=== PATIENT | female | born 1940 | race Caucasian/White ===

== ENCOUNTER → 2018-03-10 | Outpatient (CLI) | payer MEDICARE, OTHER ==
[2018-03-10 10:42] LABS: HCT 42.6 % (34.0-46.0); HGB 14.4 gm/dL (11.4-16.0); MCH 32.8 pg (25.0-35.0); MCHC 33.8 g/dL (31.0-37.0); Mean Platelet Volume 7.8; Platelet Count 289 k/uL (150-450); RBC 4.39 m/uL (3.80-5.40); RDW 13.3 % (11.5-15.5)
[2018-03-10 10:47] LABS: Appearance,Urine Clear (Clear); Bilirubin,Urine Negative (Negative); Blood,Urine Negative (Negative); Color,Urine Yellow; Glucose,Urine (UA) Negative (Negative); Ketones,Urine Negative (Negative); Leukocyte Esterase,Urine Negative (Negative); Nitrite,Urine Negative (Negative); PH, Urine 7.5 (5.0-8.0); Protein,Urine Negative (Negative); Specific Gravity,Urine 1.016 (1.001-1.035); Urobilinogen,Urine <2.0 mg/dL (<2.0)
[2018-03-10 10:48] LABS: INR 0.9 (<1.2); Partial Thromboplastin Time 23.9 sec (22.0-30.0); Prothrombin Time 10.2 sec (9.0-12.0)
[2018-03-10 11:00] LABS: Albumin 4.3 g/dL (3.5-5.0); Calcium 9.9 mg/dL (8.4-10.2); Potassium 4.3 mmol/L (3.5-5.1); Total Bilirubin 0.6 mg/dL (0.2-1.3); Total Protein 7.5 g/dL (6.3-8.2)
== END | disposition home or self-care (01) ==
LOC: LABPAT 09:15
PROVIDERS: ATTEND Orthopaedic Surgery
DX: Z01.812 Encounter for preprocedural laboratory examination (principal); Z79.01 Long term (current) use of anticoagulants
CPT/HCPCS: 36415; 80053; 81003; 85027; 85610; 85730; 87070

== ENCOUNTER 2018-04-05 05:41 | Inpatient (IN) | payer MEDICARE, OTHER ==
[~2018-04-05 05:41] MED LIST: ACETAMINOPHEN TAB 500 MG TAB PO ONE; DEXAMETHASONE SOD PHOSPHATE 10 MG/ML 1 ML VIAL IV ONE; HYDROmorphone 0.5 MG/0.5 ML SYRINGE IVP PRN; MELOXICAM 7.5 MG TAB PO ONE; MORPHINE SULFATE 2 MG/ML SYRINGE IV PRN; ONDANSETRON 4 MG/2 ML VIAL IVP ONE; ONDANSETRON 4 MG/2 ML VIAL IVP PRN; TRANEXAMIC ACID 1,000 MG in SODIUM CHLORIDE 0.9% 50 ML IVPB ONE; ceFAZolin IN SWFI 2 GM/20 ML SYRINGE IVP ONE
[2018-04-05] MEDS: LACTATED RINGERS 1,000 ML IV SCH (06:20)
[2018-04-05] MEDS ORDERED: LIDOCAINE 1% 20 ML VIAL (10MG/ML) FOR IV START INTRADERMA ONE (06:20)
[2018-04-05] MEDS ORDERED: MIDAZOLAM 2 MG/2 ML VIAL IV ONE (06:28)
[2018-04-05] MEDS ORDERED: fentaNYL (PF) 50 MCG/ML 2 ML AMP IV ONE (06:29)
--- NOTE | 2018-04-05 06:44 | P.ONQ ---
Anesthesiology Proc Note - PNB - Peripheral Nerve Block Performed Right Adductor Canal Infusion Time Out Performed: Yes Procedure Start Time: 06:28 Procedure Stop Time: 06:37 Indication: Acute Post-Operative Pain, Requested by physician (Dr Whitaker) Sedation Type: Sedate with meaningful contact maintained Preparation: Sterile Dressing Position: Supine Catheter: Indwelling Needle Types: Fely Needle Size: 100mm (4") Needle Gauge: 18 Technique: Ultrasound Injectate: 0.5% Ropivacaine (see comment for volume) (30 ml) Blood Aspirated: No Pain Paresthesia on Injection Noted: No Resistance on Injection: Normal Events: Uneventful and Well Tolerated
[2018-04-05] MEDS ORDERED: PHENYLEPHRINE-0.9% NACL SYG 1 MG/10 ML SYRINGE ONE (06:53)
[2018-04-05] MEDS ORDERED: TRANEXAMIC ACID 1,000 MG/10 ML VIAL ONE (06:53)
[2018-04-05] MEDS ORDERED: SODIUM CHLORIDE 0.9% 100 ML BAG ONE (06:53)
[2018-04-05] MEDS ORDERED: MIDAZOLAM 2 MG/2 ML VIAL ONE (06:53)
[2018-04-05] MEDS ORDERED: fentaNYL (PF) 50 MCG/ML 2 ML AMP ONE (06:53)
[2018-04-05] MEDS ORDERED: PROPOFOL 10 MG/ML 20 ML VIAL IV ONE (06:53)
[2018-04-05] MEDS ORDERED: NALOXONE 0.4 MG/ML 1 ML VIAL IV PRN (06:54)
[2018-04-05] MEDS ORDERED: hydrOXYzine PAMOATE 25 MG CAP PO PRN (06:54)
[2018-04-05] MEDS ORDERED: BISACODYL 10 MG SUPP RECTAL PRN (06:54)
[2018-04-05] MEDS ORDERED: MAGNESIUM HYDROXIDE 2,400 MG/10 ML CUP PO PRN (06:54)
[2018-04-05] MEDS ORDERED: HYDROcodone/APAP 5-325MG 1 EACH TAB PO PRN (06:54)
[2018-04-05] MEDS ORDERED: NA PHOS,M-B/NA PHOS,DI-BA 133 ML ENEMA RECTAL PRN (06:54)
[2018-04-05] MEDS ORDERED: HYDROmorphone 0.5 MG/0.5 ML SYRINGE IVP PRN ×3 (06:54)
[2018-04-05] MEDS ORDERED: DIAZEPAM 5 MG TAB PO PRN (06:54)
[2018-04-05] MEDS ORDERED: ROPIVACAINE 1,100 MG, SODIUM CHLORIDE 0.9% 500 ML 330 ML MISCELLANE PRN ×2 (07:00)
[2018-04-05] MEDS ORDERED: ROPIVACAINE 246.25 MG, EPINEPHrine 0.5 MG, KETOROLAC 30 MG, cloNIDine HCL/PF 80 MCG, WA... MISCELLANE ONE ×5 (07:00)
[2018-04-05] MEDS ORDERED: ceFAZolin 3,000 MG in SODIUM CHLORIDE 0.9% IRRIGATIO 3,000 ML IRRIGATION ONE (07:30)
[2018-04-05] MEDS ORDERED: LACTATED RINGERS 1,000 ML IV ONE ×2 (08:09)
--- NOTE | 2018-04-05 08:36 | P.OP ---
Date of Procedure: 04/05/18 Preoperative Diagnosis: Severe osteoarthritis right knee Postoperative Diagnosis: Severe osteoarthritis right knee Procedure(s) Performed: Right total knee arthroplasty Implants: Locke [employer] Nephew Journey II CR Oxinium cruciate retaining femoral component size 4, right [employer] Journey right nonporous tibial baseplate size 4 Locke [employer] Journey II, XLPE Deep Dished articular insert, size 9 mm, Size 3- 4 right [employer] Journey BCS resurfacing oval patellar component, 29 mm All components were cemented using Palacos R bone cement.. The articulation is Oxinium on polyethylene. Anesthesia: spinal Surgeon: Issa Whitaker Paint Technician #1: Jami Torres Estimated Blood Loss (ml): 25 Pathology: other (Bone and cartilage) Condition: stable Disposition: PACU Indications for Procedure: After failure of conservative treatment we discussed the surgical and nonsurgical treatment options at length. Patient wishes to proceed with a total knee arthroplasty. Complications specific to this procedure were discussed at length, including but not limited to infection, bleeding, stiffness , and nerve injury. Patient is aware of all these complications and informed consent was obtained Operative Findings: The operative findings are consistent with severe osteoarthritis of the right knee Description of Procedure: Patient was seen in the preoperative area consent was reviewed and operative site was marked with a skin marker. An adductor canal pain catheter was placed by anesthesia in the preoperative area. Patient was then brought to the operating room and given preoperative antibiotics intravenously. A spinal anesthetic was administered by the anesthesia department. A tourniquet was placed on the upper thigh and the lower extremity was prepped and draped in usual sterile fashion. A gram of transexamic acid was given. A universal timeout was then performed which confirmed the patient's name, surgical site, ALLERGIES, and consent. The lower extremity was then exsanguinated and tourniquet was inflated to 250 mmHg. A standard and anterior midline approach to the knee was performed. The skin and subcutaneous tissue was dissected down to the patellar tendon. A medial parapatellar arthrotomy was then performed. The knee was then extended, the patellar was everted, and the knee was again flexed. Anterior horns of both menisci were excised, and a release was performed to the posterior medial aspect of the knee. On gross visual inspection, there was complete loss of articular cartilage in the medial and patellofemoral joint spaces. There was also significant cartilage damage in the lateral compartment. There were multiple periarticular osteophytes which were then removed with a Ronguer. The femoral canal was then opened with the appropriate drill, and the intramedullary femoral cutting guide was then placed and set for 5 of valgus. The distal femoral cutting block was then pinned in place, and the distal femur was then cut. The cutting block was then removed and the cut was checked for flatness. Next, the sizing guide was then placed and set for 3 external rotation based off of the epicondylar axis and Whitesides line. After the femur was sized, the appropriate 4-in-1 cutting block was then pinned in place. The anterior condyles were cut without notching. The posterior and chamfer cuts were performed while protecting the collateral ligaments. The cutting block was then removed, and the femoral canal was plugged with autologous bone. Attention was then directed to the tibia. The remaining ACL was removed with a Ronguer, and the tibia was then gently subluxed forward with a large bent knee retractor. Any remaining menisci was excised. The posterior lateral corner was cauterized in order to cauterize the lateral geniculate artery. The extra medullary tibial cutting guide was then placed, set for the appropriate rotation , slope, and depth of resection. The proximal tibia cutting guide was then pinned in place. Proximal tibia was then cut and sized. Next trials were then placed with the appropriate-sized insert. The knee was able to fully extend and flex to 130 and was stable throughout all range of motion. The knee was then extended, patella everted. Patella was then measured, and then using an osteotomy guide, the patella was cut at the appropriate level. The patella was then measured and drilled and the patella trial was then placed. The knee was then taken through range of motion with the patella trial and the patella tracked normally. The knee was then extended patella trial was then removed and the patella was everted. Knee was then flexed and lug holes were drilled through the femoral trial and the femoral trial was then removed. The tibial was then exposed, and the tibial broach guide was then pinned in place after it was set for the appropriate rotation to allow for the most coverage without overhang. The tibia was then reamed and broached. The cut surfaces of bone were then irrigated with pulsatile lavage. The posterior structures were injected with the ropivacaine solution. The knee was also irrigated with Irrisept solution. The components were then opened, the cement was mixed, and the components were then cemented in place. The cement was allowed to harden with the knee in full extension. While the cement was hardening, the remaining soft tissues were then injected with a ropivacaine solution, which consisted of 246.25 mg of ropivacaine, 0.5 mg of epinephrine, 30 mg of Toradol, 80 g of clonidine, and 48.45 mL of sterile water, for a total of 100 mL of fluid injected. After the cemented hardened. The tourniquet was released, and hemostasis was obtained. A second gram of transexamic acid was given. The knee was again irrigated. The knee was again taken through range of motion and found to be stable throughout all range of motion of 0-130 , and the patella tracked normally. The fascia was then closed with #2 strata fix suture. The subcutaneous tissue was closed with 3-0 Vicryl and 3-0 strata fix. Dermabond glue was used for the skin and placed with the knee in flexion. The patient was placed in a sterile silver dressing. Patient was then transferred to recovery room in stable condition. The child and youth program assistant ERNESTO Del Valle was required due the complexity surgery and the need for a skilled ophthalmic surgical assistant. She assisted in positioning, draping, retraction, and closure of the wound.
[2018-04-05 09:13] VITALS: RESP 16
--- NOTE | 2018-04-05 10:09 | XR ---
EXAMINATION TYPE: XR knee limited RT DATE OF EXAM: 04/05/2018 COMPARISON: 05/07/2011 HISTORY: Post knee replacement TECHNIQUE: 2 views with mobile apparatus right knee FINDINGS: Postsurgical changes are evident. No acute fractures are evident. Tibial and femoral compon ents have been placed. IMPRESSION: 1. No acute fracture post knee replacement.
[2018-04-05 14:58] VITALS: BMI 36.1
[2018-04-05] MEDS: HYDROcodone/APAP 5-325MG 1 EACH TAB PO PRN ×2 (15:11→22:15)
[2018-04-05] MEDS: SODIUM CHLORIDE 0.9% 1,000 ML IV SCH ×2 (15:56→22:00)
[2018-04-05] MEDS: ASPIRIN 325 MG TAB PO SCH ×2 (15:56→22:14)
[2018-04-05] MEDS: ceFAZolin IN SWFI 2 GM/20 ML SYRINGE IVP SCH ×2 (16:59→22:46)
[2018-04-05] MEDS ORDERED: LATANOPROST 0.005% OPHTH DROPS 2.5 ML BTL BOTH EYES SCH (20:15)
[2018-04-05] MEDS ORDERED: SENNOSIDES-DOCUSATE SODIUM 1 EACH TAB PO SCH (21:00)
[2018-04-05] MEDS ORDERED: traZODone HCL 50 MG TAB PO SCH (21:00)
[2018-04-05] MEDS: cycloSPORINE 0.05% OPHTH 0.4 ML DROPERETTE BOTH EYES SCH (22:15)
--- NOTE | 2018-04-06 03:13 | CONS ---
CONSULTATION DATE OF SERVICE: 04/05/2018. REASON FOR CONSULTATION: Medical management, requested by Dr. Whitaker. CONSULTATION: This is a very pleasant 77-year-old patient Dr. Ledy Rod. The patient has undergone a right total knee arthroplasty. Postprocedure pain is controlled. No nausea or vomiting. No cardiac symptoms. Chronic stable medical conditions include hyperlipidemia, hypertension, hypothyroid, urinary stress incontinence, and insomnia. Patient otherwise doing well. REVIEW OF SYSTEMS: CONSTITUTIONAL: None. HEENT: None. RESPIRATORY: None. GASTROINTESTINAL: Heartburn. GENITOURINARY: Urinary incontinence. MUSCULOSKELETAL: Arthritic pain in joints. DERMATOLOGICAL, HEMATOLOGIC, LYMPHATIC: None. PSYCHIATRY: None. NEUROLOGIC: None. PAST MEDICAL HISTORY: GERD, hypertension, osteoarthritis, hypothyroid, urinary stress incontinence, insomnia. PAST SURGICAL HISTORY: Left ankle fracture with pins, cataracts, stents. SOCIAL HISTORY: No smoking. Drinks 5 glass of wine a week. . FAMILY HISTORY: Bladder cancer. HOME MEDICATIONS: 1. Trazodone 50 mg at bedtime. 2. Cyclosporine 1 drop to both eyes every 12 hours. 3. Travatan 0.004% 1 drop to both eyes at supper. 4. Zocor 20 mg a day. 5. Multivitamin 1 tablet p.o. daily. 6. Levothyroxine 25 mcg a day. 7. Ibuprofen 600 mg p.o. t.i.d. p.r.n. 8. Hydrochlorothiazide 25 mg a day. 9. Calcium vitamin D 1 tablet p.o. daily. ALLERGIES: Allergies to SULFA and PENICILLIN. PHYSICAL EXAMINATION: Temperature 97.7, pulse 64, respirations 16, blood pressure 120/68, pulse ox 97% on room air. GENERAL APPEARANCE: Well built. BMI 36.5. Lying in bed comfortable. EYES: Pupils equal. Conjunctivae normal. HEENT: External nose and ears normal. Oral cavity normal. NECK: JVD not raised. Mass not palpable. Respiratory effort normal. LUNGS: Fair air entry. CARDIOVASCULAR: 1st and 2nd heart sounds. No edema. ABDOMEN: Soft, nontender. Liver and spleen not palpable. LYMPHATIC: No lymph nodes palpable in neck or axillae. PSYCHIATRY: Alert and oriented x3. Mood and affect normal. NEUROLOGIC: Pupils equal. Cranial nerves grossly intact. Power and sensation grossly intact. EXTREMITIES: Dressing of the right hip. MUSCULOSKELETAL: Evidence of osteoarthritis especially in the hands. INVESTIGATIONS: Lab work from a month ago, white count 5, hemoglobin 14.4 potassium 4.3, creatinine 0.81. ASSESSMENT: 1. Right total knee arthroplasty. 2. Gastroesophageal reflux disease. 3. Essential hypertension. 4. Primary osteoarthritis. 5. Hypothyroidism. 6. Chronic urinary stress incontinence. 7. Chronic insomnia for which the patient takes trazodone. PLAN: Home medications will be resumed. Pain control is in place. The patient is on aspirin for DVT prophylaxis per Dr. Whitaker. Care was discussed with the patient, questions answered. MMODL / IJN: [id number] /
[2018-04-06] MEDS: LACTATED RINGERS 1,000 ML IV SCH (04:38)
[2018-04-06] MEDS: HYDROcodone/APAP 5-325MG 1 EACH TAB PO PRN ×2 (05:56→11:59)
[2018-04-06] MEDS ORDERED: LEVOTHYROXINE 25 MCG TAB PO SCH (06:30)
[2018-04-06 08:03] VITALS: BP 128/49; PULSE 70; TEMP 97.6
[2018-04-06 08:37] LABS: Basophils % (A) 0 %; Eosinophils # (A) 0.1 k/uL (0-0.7); Eosinophils % (A) 1 %; HCT 36.9 % (34.0-46.0); Lymphocytes # (A) 1.3 k/uL (1.0-4.8); Lymphocytes % (A) 14 %; MCH 32.8 pg (25.0-35.0); MCHC 32.6 g/dL (31.0-37.0); MCV 100.7 fL (80.0-100.0); Macrocytosis Slight; Mean Platelet Volume 8.7; Monocytes # (A) 0.5 k/uL (0-1.0); Monocytes % (A) 6 %; Neutrophils % (A) 78 %; Platelet Count 202 k/uL (150-450); RBC 3.66 m/uL (3.80-5.40); RDW 13.9 % (11.5-15.5)
[2018-04-06] MEDS: ASPIRIN 325 MG TAB PO SCH (08:52)
[2018-04-06] MEDS: cycloSPORINE 0.05% OPHTH 0.4 ML DROPERETTE BOTH EYES SCH (08:54)
[2018-04-06] MEDS: SODIUM CHLORIDE 0.9% 1,000 ML IV SCH (08:54)
--- NOTE | 2018-04-06 08:55 | P.DS ---
Providers Date of admission: 04/05/18 05:41 Expected date of discharge: 04/06/18 Attending physician: Issa Whitaker Consults: 04/05/18 06:54 Consult Physician Routine Consulting Provider: Ameya Aguiar Consult Reason/Comments: medical management Do you want consulting provider notified?: Yes Primary care physician: Ledy Jacquesel - Discharge Diagnosis(es) (1) Status post right knee replacement Current Visit: Yes Status: Acute (2) Primary osteoarthritis of right knee Current Visit: Yes Status: Acute Hospital Course: This is a 77-year-old female with known history of degenerative arthritis of the right knee. The patient presents for evaluation. After discussion and consideration patient elects to proceed with total knee arthroplasty. The patient is seen preoperatively by Dr. Whitaker and medically cleared for surgery by their primary care physician. Patient is admitted to [facility] on 04/05/2018 for total knee arthroplasty. The procedures performed without complication or sequelae. The patient is doing well postoperatively. Labs and vital signs are stable on day of discharge. On day of discharge patient's knee incision is healing well. There is minimal erythema. There is no drainage noted at this time. There is minimal soft tissue swelling to the knee. Patient has full foot and ankle motion without difficulty or pain. Neurovascular status to the right lower extremity is intact. Patient is discharged home in good condition. Please see med rec for accurate list of home medications. Plan - Discharge Summary Discharge Rx Participant: Yes New Discharge Prescriptions: New Aspirin 325 mg PO BID #60 tab HYDROcodone/APAP 5-325MG [Molino 5-325] 1 - 2 tab PO Q4-6H PRN #84 tab PRN Reason: Pain Sennosides [Senokot] 1 tab PO BID #60 tablet No Action Hydrochlorothiazide 25 mg PO DAILY Levothyroxine Sodium 25 mcg PO DAILY Simvastatin [Zocor] 20 mg PO DAILY traZODone HCL 50 mg PO HS cycloSPORINE 0.05% OPHTH SOLN [Restasis] 1 drop BOTH EYES Q12H Travoprost [Travatan Z 0.004%] 1 drop BOTH EYES W/SUPPER Multivitamins, Thera [Multivitamin (formulary)] 1 tab PO DAILY Ibuprofen 600 mg PO TID PRN PRN Reason: Pain Calcium With Vit D 1 tab PO DAILY Discharge Medication List Calcium With Vit D 1 tab PO DAILY 03/30/18 [History] Hydrochlorothiazide 25 mg PO DAILY 03/30/18 [History] Ibuprofen 600 mg PO TID PRN 03/30/18 [History] Levothyroxine Sodium 25 mcg PO DAILY 03/30/18 [History] Multivitamins, Thera [Multivitamin (formulary)] 1 tab PO DAILY 03/30/18 [History ] Simvastatin [Zocor] 20 mg PO DAILY 03/30/18 [History] Travoprost [Travatan Z 0.004%] 1 drop BOTH EYES W/SUPPER 03/30/18 [History] cycloSPORINE 0.05% OPHTH SOLN [Restasis] 1 drop BOTH EYES Q12H 03/30/18 [History ] traZODone HCL 50 mg PO HS 03/30/18 [History] Aspirin 325 mg PO BID #60 tab 04/06/18 [Rx] HYDROcodone/APAP 5-325MG [Molino 5-325] 1 - 2 tab PO Q4-6H PRN #84 tab 04/06/18 [ Rx] Sennosides [Senokot] 1 tab PO BID #60 tablet 04/06/18 [Rx] Follow up Appointment(s)/Referral(s): Issa Whitaker DO [Doctor of Osteopathic Medicine] - 2 Weeks Ambulatory/Diagnostic Orders: Continuous Passive Motion (CPM) Machine [DME.AMB1] Time Frame: 3 Weeks, Location : None Selected Activity/Diet/Wound Care/Special Instructions: Weightbearing as tolerated with a walker. CPM 5-6h daily. Leave dressing intact. May be removed by home care nurse in 10 days. May shower with dressing on. Please follow up with [facility] and call with any questions or concerns, . Discharge Disposition: HOME WITH HOME HEALTH SERVICES
[2018-04-06] MEDS ORDERED: MELOXICAM 7.5 MG TAB PO SCH (09:00)
[2018-04-06] MEDS ORDERED: ATORVASTATIN 10 MG TAB PO SCH (09:00)
--- NOTE | 2018-04-06 11:42 | P.PN ---
Progress Note - Text Anesthesia POD 1. Patient is status post right TKR under spinal anesthesia with a right adductor canal catheter placed for postoperative pain relief. With ropivacaine 0.2% running at 8 cc's per hour, the patient's VAS is (2, 4). Catheter site is clean dry and intact.
[2018-04-06] MEDS ORDERED: MULTIVITAMINS, THERA 1 EACH TAB PO SCH (12:00)
--- NOTE | 2018-04-06 23:42 | PN ---
PROGRESS NOTE DATE OF SERVICE: 04/06/2018 PRESENTING COMPLAINT: Right knee surgery. INTERVAL HISTORY: Patient was seen by me earlier today, status post right knee surgery. Feeling much better. Some pain is present. Did work with therapy. No nausea or vomiting. Did tolerate her diet. Overall feeling better. REVIEW OF SYSTEMS: Done for constitutional, cardiovascular, GI, pulmonary, musculoskeletal; relevant findings as above. CURRENT MEDICATIONS: Reviewed. PHYSICAL EXAMINATION: Temperature 97.6, pulse 70, respiration 16, blood pressure 128/49, pulse ox 93% on room air. GENERAL APPEARANCE: Comfortable. EYES: Pupils equal. Conjunctivae normal. HEENT: External appearance of nose and ears normal. Oral cavity normal. NECK: JVD not raised. Mass not palpable. RESPIRATORY: Effort normal. Lungs are clear. CARDIOVASCULAR: First and second sounds normal. No edema. ABDOMEN: Soft, non-tender. Liver and spleen not palpable. PSYCHIATRY: Alert and oriented x3. Mood and affect normal. INVESTIGATIONS: White count 9, hemoglobin 12.0. ASSESSMENT: 1. Right total knee arthroplasty. 2. Gastroesophageal reflux disease. 3. Essential hypertension. 4. Primary osteoarthritis. 5. Hypothyroidism. 6. Chronic urinary stress incontinence. 7. Chronic insomnia, for which patient is on trazodone. PLAN: Patient is medically stable. If discharged, should follow up with her family doctor. Thank you, Dr. Whitaker. MMNITOL / SANNAN: [id number] /
== END 2018-04-06 14:26 | disposition home health service (06) | DRG 470 ==
LOC: 2ORMAIN 05:41 → 4SSUR 14:34
PROVIDERS: ADMIT Orthopaedic Surgery; ATTEND Orthopaedic Surgery
PROC: 0SRC069 Replacement of Right Knee Joint with Oxidized Zirconium on Polyethylene Synthetic Substitute, Cemented, Open Approach (ICD-10-PCS; principal; 2018-04-05 07:00)
DX: M17.11 Unilateral primary osteoarthritis, right knee (principal); E03.9 Hypothyroidism, unspecified; E78.5 Hyperlipidemia, unspecified; F51.04 Psychophysiologic insomnia; I10 Essential (primary) hypertension; K21.9 Gastro-esophageal reflux disease without esophagitis; N39.3 Stress incontinence (female) (male); Z79.899 Other long term (current) drug therapy; Z80.52 Family history of malignant neoplasm of bladder; M19.042 Primary osteoarthritis, left hand; M19.041 Primary osteoarthritis, right hand; Z98.49 Cataract extraction status, unspecified eye; R26.81 Unsteadiness on feet
CPT/HCPCS: 85025; 88300